=== PATIENT | male | born 1955 | race African-American/Black ===

== ENCOUNTER 2018-01-28 11:47 | Emergency (ER) | payer MEDICAID, OTHER ==
[2018-01-28 12:30] VITALS: BP 135/85
--- NOTE | 2018-01-28 12:44 | UC ---
Ear Complaint HPI - HPI Summary HPI Summary: 62 y/o male presents the urgent care c/o Rt ear pain, clogged and pressure for the past 2 days. Pt states he has Hx of cerumen impaction and he feels a clicking sound at times. Pain is 2/10. 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 Pt denies, tinnitus, dizziness, HOLGUIN, photophobia, SOB, chest pain, abdominal pain, N /V/D - History of Current Complaint Chief Complaint: UCEar Stated Complaint: EAR COMPLAINT Time Seen by Provider: 01/28/18 12:39 Hx Obtained From: Patient Onset/Duration: Gradual Onset, Lasting Days - 2 days, Still Present Severity Initially: Mild Severity Currently: Mild Pain Intensity: 2 Pain Scale Used: 0-10 Numeric Aggravating Factors: Nothing Alleviating Factors: Nothing - Allergies/Home Medications Allergies/Adverse Reactions: Allergies Allergy/AdvReac Type Severity Reaction Status Date / Time No Known Allergies Allergy Verified 01/28/18 12:22 PMH/Surg Hx/FS Hx/Imm Hx Previously Healthy: Yes Endocrine History: Dyslipidemia - diet controled Other History Of: Negative For: HIV, Hepatitis B, Hepatitis C, Anticoagulant Therapy - Surgical History Surgical History: Yes Surgery Procedure, Year, and Place: broken rt wrist, repair - Family History Known Family History: Positive: Cardiac Disease, Hypertension, Diabetes - Social History Occupation: Employed Full-time Lives: With Family Alcohol Use: None Substance Use Type: None Smoking Status (MU): Never Smoked Tobacco Review of Systems Constitutional: Negative Eyes: Drainage - B/L eye watery ENT: Ear Ache - RT ear plugged, pressure and mild pain Respiratory: Negative Cardiovascular: Negative Gastrointestinal: Negative Genitourinary: Negative Motor: Negative Neurovascular: Negative Musculoskeletal: Negative Neurological: Negative Psychological: Negative Is Patient Immunocompromised?: No All Other Systems Reviewed And Are Negative: Yes Physical Exam - Summary Physical Exam Summary: Vital signs: reviewed General: well developed, well nourished male sitting in the examining table w/o any apparent distress Skin: [place], warm and dry, no evidence of atopic dermatitis, psoriasis, seborrhea. HEENT: -Head: atraumatic, non tender; no scalp dermatitis. -Eyes: sclera and conjunctiva clear, PERRLA, EOMI -Ears: no pre- or postauricular lymphadenopathy or erythema; RT external ear canal with mild cerumen, pinna tenderness on palpation, Rt TM injected w/ erythema and mild yellowish discahrge. LF external ear canal clear and LF TM WNL. No perforation. -Nose/Face: erythematous and edematous nasal mucosa with clear rhinorrhea, no frontal or maxillary sinus tender to palpation. -Mouth/Throat: Mucous membrane moist, posterior pharynx clear, no erythema or exudates. Neck: supple, FROM, nontender, no lymphadenopathy, no meningismus. Chest: Clear to auscultation, normal breath sounds Abd: soft, Bowel sounds active, Nontender. Back: no spinal or CVAT Neuro: A&O x4, GCS 15, no focal neuro deficits, normal behavior for age. Triage Information Reviewed: Yes Vital Signs: Initial Vital Signs Temp 98.3 F 01/28/18 12:23 Pulse 67 01/28/18 12:23 Resp 18 01/28/18 12:23 BP 135/85 01/28/18 12:23 Pulse Ox 100 01/28/18 12:23 Ear Complaint Course/Dx - Course Course Of Treatment: 62 y/o male presents the urgent care c/o Rt ear pain, clogged and pressure for the past 2 days. Pt states he has Hx of cerumen impaction and he feels a clicking sound at times. Pain is 2/10. 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 Pt denies, tinnitus, dizziness, HOLGUIN, photophobia , SOB, chest pain, abdominal pain, N/V/D. Hx obtained. Pt w/ Rt otitis media on examiantion. Some cerumen removed from RT exteranl ear canal w/ ear speculum. Pe tolerated well procedure. Pt Rx Amoxicillin PO. Advised if symptoms do not improve or worsen to return to the urgent care or f/u with PCP for further management. Pt understood and agreed with D/C instructions. - Differential Dx/Diagnosis Differential Diagnosis/HQI/PQRI: Cerumen Impaction, Otitis Externa, Otitis Media , Perforated TM, Pharyngitis Provider Diagnoses: 1- Acute Rt otitis media Discharge - Discharge Plan Condition: Stable Disposition: HOME Prescriptions: Amoxicillin PO (*) [Amoxicillin 875 MG (*)] 875 mg PO BID #14 tab Patient Education Materials: Ear Infection (ED) Referrals: Sinan Shankar MD [Primary Care Provider] - If Needed Additional Instructions: 1- Please take the full course of the antibiotic to avoid resistance. 2-If symptoms do not improve or worsen please return to the urgent care or f/u with your PCP for further evaluation and treatment.
== END 2018-01-28 13:16 | disposition home or self-care (01) ==
LOC: UCEAST 11:47
DX: H66.91 Otitis media, unspecified, right ear (principal)
CPT/HCPCS: 99212; G0463